=== PATIENT | female | born 1960 | race Caucasian/White ===

== ENCOUNTER 2018-02-15 10:32 | Emergency (ER) | payer OTHER ==
[~2018-02-15] VITALS: Ht 167.6 cm; Wt 69.4 kg
[~2018-02-15 10:32] MED LIST: ACET500 PO; ASPI325; ASPI81EC PO; ATOR40TA PO; ATOR80 PO; AZIT250 PO; AZIT500 PO; BUTASPCAF PO; CEPH500 PO; CIPDEXSU OT; CIPR500 PO; CLOP75 PO; CODACE30 PO; CRUTCH3 UD; CRUTCH3 USE; CRUTCH4 USE; CYCL10 PO; DESM.01SO; DESMOPRESS10 MCG/0.1; ESTR.625; HYDACE5 PO; HYDCOR10 PO; HYDCOR2.5B TOP; HYDCOR20; HYDCOR20 PO; HYDROCORT; IBUP600 PO; IBUP800 PO; KETO10 PO; Klor-Con 1010 MEQ PO; LACO50TA2 PO; LEVFLO500 PO; LEVO750 PO; LEVOTHYROXINE SODIUM; LEVSOD100; LEVSOD125 PO; LEVSOD137 PO; LEVSOD150 PO; LEVSOD175 PO; LEVSOD200 PO; MAGCHL64ER; MAGCHL64ER PO; METCAR500 PO; METO25; METO25 PO; METO25ER PO; METPRE4DP; METR500 PO; Micro-K10 MEQ PO; NAPR375 PO; NAPR550 PO; NEUTRAPHOS; NITR100CA PO; Naprosyn375 MG PO; Norco 5-325 Ta1 EACH PO; OLAN10 PO; OMEP20ER PO; OMEP40CA12 PO; OXYACE5T PO; PHENY100ER; PHENY100ER PO; PHENY50CH; POTCHL10ER PO; POTCHL20ER PO; PROACE100 PO; PROM25 PO; Percocet 5-3251 EACH PO; Phospha 250 Ne250 MG PO; Prinivil10 MG PO; RXOXYACE PO; RXPROACE PO; RXPROM25 PO; RXSULTRIDS PO; SULTRIDS PO; SYNTHROID; Synthroid125 MCG PO; TAMS.4ER PO; Tylenol325 MG PO; Vimpat150 MG PO; [UNRECOGNIZED DRUG - OTHER] NS; [UNRECOGNIZED DRUG - REMARK]
[2018-02-15] MEDS ORDERED: IRON240 MG PO (11:05)
[2018-02-15 11:30] LABS: Test Name LACOS
[2018-02-15 11:37] LABS: BASOPHILS ABSOLUTE AUTO 0.07 K/mm3 (0.00-0.23); BASOPHILS PERCENT AUTO 1 % (0-2); EOSINOPHILS ABSOLUTE AUTO 0.21 K/mm3 (0.00-0.68); EOSINOPHILS PERCENT AUTO 4 % (0-6); Hematocrit 32.6 % (33.0-51.0); IMMATURE GRAN ABSOLUTE AUTO 0.01 K/mm3 (0.00-0.10); IMMATURE GRAN PERCENT AUTO 0 % (0-1); LYMPHOCYTES ABSOLUTE AUTO 2.78 K/mm3 (0.84-5.20); LYMPHOCYTES PERCENT AUTO 50 % (21-46); MONOCYTES ABSOLUTE AUTO 0.44 K/mm3 (0.16-1.47); MONOCYTES PERCENT AUTO 8 % (4-13); Mean Corpuscular HGB Conc 30.7 g/dL (31.5-36.5); Mean Corpuscular Volume 75 fL (80-100); NEUTROPHILS ABSOLUTE AUTO 2.05 K/mm3 (1.96-9.15); NEUTROPHILS PERCENT AUTO 37 % (41-73); Platelet Count 255 K/mm3 (150-400); RDW Coefficient Variation 23.9 % (11.7-14.2); RDW Standard Deviation 63.5 fL (35.1-46.3); Red Blood Cell Count 4.34 M/mm3 (3.80-5.20); White Blood Cell Count 5.56 K/mm3 (4.00-11.30)
[2018-02-15 11:39] LABS: Mean Platelet Volume 10.8 fL (9.1-12.4)
[2018-02-15 11:52] LABS: Alanine Aminotransfer (ALT/SGP 14 U/L (12-78); Albumin, Blood 3.8 g/dL (3.4-5.0); Albumin/Globulin Ratio 1.1 (0.8-1.8); Alk Phos 63 U/L (50-136); Anion Gap 6 mmol/L (6-16); Aspartate Aminotrans (AST/SGOT 19 U/L (12-37); Bilirubin, Total 0.6 mg/dL (0.1-1.0); Blood Urea Nitrogen 11 mg/dL (8-24); Bun/Creatinine Ratio 17.1 (12.0-20.0); CO2, Blood 25 mmol/L (21-32); Calcium, Blood 8.9 mg/dL (8.5-10.1); Chloride, Blood 108 mmol/L (98-108); Creatinine, Blood 0.64 mg/dL (0.40-1.00); Globulin, Blood 3.5 g/dL (2.2-4.0); Glomerular Filtration Rate >60 (60-); Glucose, Blood 84 mg/dL (70-99); Potassium, Blood 3.8 mmol/L (3.5-5.5); Sodium, Blood 139 mmol/L (136-145); Total Protein, Blood 7.3 g/dL (6.4-8.2)
== END 2018-02-15 12:25 | disposition home or self-care (01) ==
LOC: ER 10:32
PROVIDERS: Internal Medicine
DX: G40.909 Epilepsy, unspecified, not intractable, without status epilepticus (principal); I25.2 Old myocardial infarction; Z88.0 Allergy status to penicillin; Z88.2 Allergy status to sulfonamides; Z88.5 Allergy status to narcotic agent; Z88.8 Allergy status to other drugs, medicaments and biological substances; Z88.6 Allergy status to analgesic agent; Z88.1 Allergy status to other antibiotic agents; Z79.899 Other long term (current) drug therapy; Z79.02 Long term (current) use of antithrombotics/antiplatelets; Z86.73 Personal history of transient ischemic attack (TIA), and cerebral infarction without residual deficits; Z87.891 Personal history of nicotine dependence
CPT/HCPCS: 36415; 80053; 85025; 99283; G0480